=== PATIENT | male | born 1965 | race Caucasian/White ===

== ENCOUNTER 2017-07-14 07:37 | Day surgery (SDC) | payer OTHER ==
[2017-07-14] MEDS ORDERED: LIDOCAINE 1% 2 ML INJ ID PRN (07:53)
[2017-07-14] MEDS ORDERED: LR 1,000 ML IV ONE (07:53)
[2017-07-14 08:04] VITALS: PULSE 113
--- NOTE | 2017-07-14 09:45 | PDGENHP ---
History & Physical Chief Complaint: Screening colonoscopy Relevant Physical Exam: GEN: NAD. Cardiac: RRR. Lungs: CTA B. Abd: Soft, nt, nd
--- NOTE | 2017-07-14 09:58 | PDANEPAE ---
ANE History of Present Illness Patient presents for colonoscopy ANE Past Medical History - Cardiovascular History Hx Hypertension: Yes Hx Arrhythmias: No Hx Chest Pain: No Hx Coronary Artery / Peripheral Vascular Disease: No Hx CHF / Valvular Disease: No Hx Palpitations: No Cardiovascular History Comment: on Chol Rx - Pulmonary History Hx COPD: No Hx Asthma/Reactive Airway Disease: No Hx Recent Upper Respiratory Infection: No Hx Oxygen in Use at Home: No Hx Sleep Apnea: No Sleep Apnea Screening Result - Last Documented: Positive Pulmonary History Comment: triggers for VIRGILIO - Neurologic History Hx Cerebrovascular Accident: No Hx Seizures: No Hx Dementia: No - Endocrine History Hx Diabetes: No - Renal History Hx Renal Disorders: No - Liver History Hx Hepatic Disorders: No - Neurological & Psychiatric Hx Hx Neurological and Psychiatric Disorders: No - Cancer History Hx Cancer: No - Congenital Disorder History Hx Congenital Disorders: No - GI History Hx Gastrointestinal Disorders: Yes Gastrointestinal History Comment: screening colonoscopy - Chronic Pain History Chronic Pain: No - Surgical History Prior Surgeries: none ANE Review of Systems Review of Systems: - Exercise capacity METS (RN): 4 METS ANE Patient History - Allergies Allergies/Adverse Reactions: No Known Allergies Allergy (Unverified 07/09/17 11:15) - Home Medications Home medications: home medication list seen and reviewed Home Medications: Amlodipine Besylate 07/09/17 [Last Taken 07/14/17 00:20] Lisinopril 07/09/17 [Last Taken 07/14/17 00:20] SIMVASTATIN 07/09/17 [Last Taken 07/14/17 00:20] - NPO status NPO Status: no food or drink >8 hours NPO Since - Liquids (Date): 07/14/17 NPO Since - Liquids (Time): 00:20 NPO Since - Solids (Date): 07/13/17 NPO Since - Solids (Time): 08:00 - Anes Hx Anes Hx: no prior problems - Smoking Hx Smoking Status: Never smoked - Family Anes Hx Family Hx Anesthesia Complications: none known ANE Labs/Vital Signs - Vital Signs Blood Pressure: 142/86 Heart Rate: 113 Respiratory Rate: 16 O2 Sat (%): 93 Height: 177.8 cm Weight: 131.542 kg ANE Physical Exam - Airway Neck exam: FROM, increased neck circumference Mallampati Score: Class 2 Mouth exam: normal dental/mouth exam - Pulmonary Pulmonary: no respiratory distress - Cardiovascular Cardiovascular: regular rate and rhythym - ASA Status ASA Status: II ANE Anesthesia Plan Anesthesia Plan: GA with mask (rba discussed) Total IV Anesthesia: Yes
[2017-07-14] MEDS ORDERED: PROPOFOL/EMULSION 500 MG/50 ML BOTTLE IV ONE (10:20)
[2017-07-14] MEDS ORDERED: PROPOFOL 200 MG/20 ML VIAL ONE (10:44)
--- NOTE | 2017-07-14 10:55 | GIREPORT ---
Formerly [facility] Surgical Services - Endoscopy Department Patient Name: Gwyn Gonzalez Procedure Date: 07/14/2017 10:07 AM Patient Type: Outpatient Attending / ER Physician: Jimbo Keane MD Procedure: Colonoscopy Indications: Screening for colorectal malignant neoplasm Providers: Jimbo Keane MD Medicines: Monitored Anesthesia Care Complications: No immediate complications. Description of Procedure: After obtaining informed consent, the scope was passed under direct vis ion. Throughout the procedure, the patient's blood pressure, pulse, and oxyg en saturations were monitored continuously. The Colonoscope with irrigatio n channel was introduced through the anus and advanced to the terminal il eum, with identification of the appendiceal orifice and IC valve. The colono scopy was performed without difficulty. The patient tolerated the procedure w ell. The quality of the bowel preparation was good. Findings: The perianal and digital rectal examinations were normal. The terminal ileum appeared normal. A 2 mm polyp was found in the rectum. The polyp was sessile. The polyp was removed with a cold biopsy forceps. Resection and retrieval were comple te. Verification of patient identification for the specimen was done by the physician and nurse using the patient's name and date. Estimated blood loss was minimal. The retroflexed view of the distal rectum and anal verge was normal and showed no anal or rectal abnormalities. Estimated Blood Loss: Estimated blood loss: none. Post Op Diagnosis: - The examined portion of the ileum was normal. - One 2 mm polyp in the rectum, removed with a cold biopsy forceps. Res ected and retrieved. - The distal rectum and anal verge are normal on retroflexion view. Recommendation: - Discharge patient to home (with escort). - Resume previous diet. - Continue present medications. - Repeat colonoscopy in 5-10 years for surveillance based on pathology results. If the polyp is found to be adenomatous a repeat colonoscopy i n 5 years is recommended. - Your pathology results are available within 10 days. - Thank you for allowing me to participate in the care of your patient. Attending Participation: I personally performed the entire procedure. Jimbo Keane MD Jimbo Keane MD 07/14/2017 10:55:13 AM This report has been signed electronicallyDakristofer Keane MD Number of Addenda: 0 Note Initiated On: 07/14/2017 10:07 AM Total Procedure Duration Time 0 hours 12 minutes 28 seconds [email or web address]
--- NOTE | 2017-07-14 11:04 | POSTANESTH ---
Post Anesthetic Evaluation Cardiovascular Status: Normal, Stable Respiratory Status: Normal, Stable Level of Consciousness/Mental Status: Alert and Oriented Pain Control: Adequate, Prn Tx Ordered Nausea/Vomiting Control: Adequate, Prn Tx Ordered Complications Possibly Related to Anesthesia: None Noted
[2017-07-14 11:16] VITALS: O2SAT 93
[2017-07-14 11:30] VITALS: TEMP 97.3
[2017-07-14 11:45] VITALS: RESP 16
[2017-07-14 12:27] VITALS: BP 131/89
== END 2017-07-14 12:15 | disposition home or self-care (01) ==
LOC: FSGY 07:37
PROVIDERS: ATTEND Internal Medicine Gastroenterology
PROC: 0DBP8ZX Excision of Rectum, Via Natural or Artificial Opening Endoscopic, Diagnostic (ICD-10-PCS; principal; 2017-07-14 09:45)
DX: Z12.11 Encounter for screening for malignant neoplasm of colon (principal); K62.1 Rectal polyp
CPT/HCPCS: J2704